=== PATIENT | female | born 1970 | race Caucasian/White ===

== ENCOUNTER → 2016-10-24 | Outpatient (REF) | payer OTHER | LOC: M LAB REF 10:06 | PROVIDERS: ATTEND Physician Assistant | DX: N39.0 Urinary tract infection, site not specified (principal) ==

== ENCOUNTER → 2018-01-20 | Outpatient (REF) | payer OTHER ==
[2018-01-20 18:26] LABS: BACTERIA, URINE AUTO NEGATIVE (NEGATIVE); MUCUS, URINE SMALL (NEGATIVE); RBC, URINE AUTO 0 /HPF (0-3); SQUAMOUS EPITHELIAL CELL UR AU 0 /HPF (0-6); WBC, URINE AUTO 0 /HPF (0-3)
== END ==
LOC: M LAB REF 16:51
DX: N76.0 Acute vaginitis (principal)

== ENCOUNTER → 2018-10-14 | Outpatient (REF) | payer OTHER | LOC: M LAB REF 15:36 | PROVIDERS: ATTEND Physician Assistant | DX: N39.0 Urinary tract infection, site not specified (principal) ==

== ENCOUNTER → 2019-02-26 | Outpatient (REF) | payer BC, OTHER | LOC: M LAB REF 13:28 | PROVIDERS: ATTEND Physician Assistant | DX: N39.0 Urinary tract infection, site not specified (principal) ==

== ENCOUNTER → 2020-07-18 | Outpatient (CLI) | payer BC ==
--- NOTE | 2020-07-18 12:41 | REPMRS ---
Patient History The patient states she has not had a clinical breast exam in over a year. Family history of colorectal cancer at age 75 in maternal grandmother, colorectal cancer at age 50 or over in paternal grandmother. Took hormonal contraceptives for 15 years. 3D TOMOSYNTHESIS WAS PERFORMED. The [facility] lifetime risk for breast cancer is 10.6%. Volpara breast density b. Digital Woman Screen Mammo: July 18, 2020 - Exam #: [id number] Bilateral CC and MLO view(s) were taken. Technologist: Lucy Weems, RT FINDINGS: The breast tissue is heterogeneously dense. This may lower the sensitivity of mammography. There is a fairly symmetric fibroglandular pattern in both breasts. There has been no interval development of masses, areas of architectural distortion or clusters of microcalcifications typical of malignancy. The previously noted multiple bilateral cysts have all decreased in size. Assessment: BI-RADS/ACR category 2 mammogram. Benign Findings. Recommendation Routine screening mammogram of both breasts in 1 year (for women over age 40). This mammogram was interpreted with the aid of an FDA-approved computer-aided dectection system. Electronically Signed By: Vick Zhang MD 07/18/20 [id number]
--- NOTE | 2020-07-22 08:41 | REP ---
INDICATION: CYSTS. COMPARISON: 06/03/2017. TECHNIQUE: Real-time sonographic evaluation of entire bilateral breasts performed. FINDINGS: A hypoechoic nodule at 12 o'clock right breast measures 1.2 x 1.0 x 0.9 cm. There are internal echoes and this is not a simple cyst. It could represent a complex cyst or solid nodule. This is located 2 cm from the nipple. There is a simple cyst in the right breast at 1 o'clock measuring 1.0 x 1.5 x 0.8 cm. A cyst with multiple thin septations is noted in the right breast at 6 o'clock, 4 x 12 x 6 mm. A morphologically normal appearing lymph node in the right axilla measures 1.8 x 1.4 x 0.8 cm. In the left breast a simple cyst with a thin septation at 10 o'clock measures 1.3 x 1.9 x 0.7 cm. A simple cyst at 9 o'clock measures 1.1 cm in diameter. Morphologically normal appearing lymph nodes in the left axilla are noted. IMPRESSION: BIRADS/ACR category 4A, suspicion for malignancy is low. A hypoechoic nodule at 12 o'clock right breast measures 1.2 cm maximum diameter. This could represent a complex cyst or solid nodule. Recommend ultrasound-guided sampling. RECOMMENDATION: As above. <Electronically signed by Vick Zhang > 07/22/20 [id number]
== END ==
LOC: M WHC 11:32
PROVIDERS: ATTEND Nurse Practitioner Adult Health
DX: Z12.31 Encounter for screening mammogram for malignant neoplasm of breast (principal); Z92.0 Personal history of contraception

== ENCOUNTER → 2020-07-30 | Outpatient (CLI) | payer BC, OTHER ==
[~2020-07-30] MED LIST: ATOR1TAB19 PO; DULO1CAP6 PO; LEVOTAB10 PO; MONT10TA10 PO; SING5CHW23 PO; VITMTA PO
[2020-07-30 15:47] VITALS: BP 130/74
--- NOTE | 2020-07-30 16:10 | REP ---
INDICATION: RIGHT BREAST NODULE/U/S GUIDED BX/CK CLIP PLACEMENT. COMPARISON: 07/18/2020. TECHNIQUE: ML and CC views right breast performed following ultrasound-guided biopsy at the 12 o'clock position. FINDINGS: A biopsy clip is seen at the 12 o'clock position, at the site of the ultrasound-guided biopsy. IMPRESSION: Biopsy clip placement at the site of the ultrasound-guided biopsy 12 o'clock right breast. RECOMMENDATION: Clinical follow-up. <Electronically signed by Vick Zhang > 07/30/20 [id number]
--- NOTE | 2020-07-30 19:58 | REP ---
INDICATION: R BREAST NODULE/US GUIDED BX. COMPARISON: None. TECHNIQUE: The procedure was performed under the general supervision of Dr. Zhang. The risks and benefits of the procedure were explained to the patient and informed consent was obtained. The patient has a history of a hypoechoic nodule at the 12 o'clock position of the right breast seen on a previous ultrasound dated 07/18/2020. The right breast nodule was localized using ultrasound guidance. The skin was prepped and draped in a sterile fashion. 1% Xylocaine was used as a local anesthetic. Using ultrasound guidance a 14 gauge coaxial needle biopsy system was inserted and6 core biopsy samples were obtained. A marker clip (HydroMARK shape 4) was placed at the biopsy site The patient tolerated the procedure well and there were no immediate complications. After the appropriate amount of monitored convalescence, the patient was discharged from the department. FINDINGS: None IMPRESSION: Ultrasound-guided right breast biopsy with marker clip placement. (HydroMARK shape 4) <Electronically signed by Iron Brown > 07/30/20 1642 <Electronically signed by Vick Zhang > 07/30/20 [id number]
== END ==
LOC: M WHCPRO 07:21
PROVIDERS: ATTEND Nurse Practitioner Adult Health
DX: N63.10 Unspecified lump in the right breast, unspecified quadrant (principal)

== ENCOUNTER → 2021-02-10 | Outpatient (CLI) | payer BC, OTHER ==
--- NOTE | 2021-02-10 15:09 | REP ---
INDICATION: RT SHOULDER PAIN. COMPARISON: 03/10/2017 TECHNIQUE: Single AP view and scapular Y-view was obtained FINDINGS: The calcifications seen previously in the subacromial space are no longer present. The glenohumeral relationship in the acromioclavicular joint are within normal limits. Limited examination showing no evidence of an acute fracture, dislocation, or subluxation. IMPRESSION: As above <Electronically signed by Charlie Urrutia > 02/10/21 [id number]
== END ==
LOC: M SOG 13:42
PROVIDERS: ATTEND Orthopaedic Surgery
DX: M25.511 Pain in right shoulder (principal)

== ENCOUNTER → 2021-08-15 | Outpatient (CLI) | payer BC, OTHER ==
[~2021-08-15] MED LIST changes: -MONT10TA10 PO; +MONT10TA97 PO
== END ==
LOC: M WHC 12:22
PROVIDERS: ATTEND Nurse Practitioner Adult Health
DX: Z12.31 Encounter for screening mammogram for malignant neoplasm of breast (principal)

== ENCOUNTER → 2021-09-16 | Outpatient (CLI) | payer BC, OTHER ==
[2021-09-17 15:09] LABS: ANTINUCLEAR ANTIBODIES DIRECT Negative (Negative)
== END ==
LOC: M WUC 09:58
PROVIDERS: ATTEND Nurse Practitioner Adult Health
DX: R53.83 Other fatigue (principal)

== ENCOUNTER → 2021-12-23 | Outpatient (REF) | payer BC, OTHER ==
[2021-12-23 13:09] LABS: C REACTIVE PROTEIN QUANTITATIV 0.44 MG/DL (0.00-0.30); RHEUMATOID FACTOR QUANT < 10.0 IU/ML (<15.0)
[2021-12-23 14:26] LABS: HEPATITIS C VIRUS ABY INDEX < 0.0 INDEX (<0.8)
[2021-12-23 14:27] LABS: HEPATITIS B CORE ANTIBODY IGM NEGATIVE (NEGATIVE)
[2021-12-23 14:28] LABS: HEPATITIS B SURFACE ANTIGEN NEGATIVE (NEGATIVE)
== END ==
LOC: M LAB REF 12:07
PROVIDERS: ATTEND Nurse Practitioner Adult Health
DX: R53.83 Other fatigue (principal); M25.50 Pain in unspecified joint

== ENCOUNTER → 2022-01-08 | Outpatient (CLI) | payer OTHER, BC | LOC: M SOG 08:02 | PROVIDERS: ATTEND Orthopaedic Surgery Adult Reconstructive Orthopaedic Surgery | DX: M25.762 Osteophyte, left knee (principal); M25.562 Pain in left knee ==

== ENCOUNTER 2022-09-14 19:34 | Emergency (ER) | payer BC, OTHER ==
[2022-09-14 20:53] LABS: BASO # 0.1 10^3/uL (0.0-0.2); BASO % 0.6 % (0.0-1.0); EOS # 0.4 10^3/uL (0.0-0.5); EOS % 4.2 % (0.0-3.0); HEMATOCRIT 38.2 % (36.0-47.0); LYMPH # 2.6 10^3/uL (1.5-5.0); LYMPH % 29.9 % (24.0-44.0); MEAN CORPUSCULAR HEMOGLOBIN 30.6 pg (27.0-33.0); MEAN CORPUSCULAR VOLUME 89.9 fl (80.0-96.0); MONO # 0.6 10^3/uL (0.0-0.8); MONO % 6.9 % (2.0-8.0); NEUTROPHILS % 57.7 % (36.0-66.0); PLATELET COUNT, AUTOMATED 392 10^3/uL (150-450); RED BLOOD COUNT 4.25 10^6/uL (4.00-5.40); WHITE BLOOD COUNT 8.6 10^3/uL (4.0-10.0)
[2022-09-14 21:01] LABS: CK-MB VALUE MASS < 1.0 NG/ML (<3.6)
[2022-09-14 21:03] LABS: BLOOD UREA NITROGEN 19 MG/DL (9-23); CALCIUM LEVEL 9.2 MG/DL (8.5-10.1); CARBON DIOXIDE LEVEL 27 MMOL/L (20-31); CHLORIDE LEVEL 111 MMOL/L (98-107); CREATININE FOR GFR 0.86 MG/DL (0.55-1.30); GLOMERULAR FILTRATION RATE > 60.0 (>51); GLUCOSE, FASTING 107 MG/DL (60-100); POTASSIUM SERUM 4.1 MMOL/L (3.5-5.1); SODIUM LEVEL 144 MMOL/L (136-145)
[2022-09-14 21:06] LABS: FREE T4 0.96 NG/DL (0.89-1.76); THYROID STIMULATING HORMONE 1.952 uIU/ML (0.55-4.78)
[2022-09-14 21:07] LABS: CPK CREATINE PHOSPHOKINASE 67 U/L (34-145); MB/CK RELATIVE INDEX 1.49 (< OR =4)
[2022-09-14 22:16] LABS: CK-MB VALUE MASS < 1.0 NG/ML (<3.6)
[2022-09-14 22:18] LABS: CPK CREATINE PHOSPHOKINASE 62 U/L (34-145); MB/CK RELATIVE INDEX 1.61 (< OR =4)
[2022-09-15] MEDS ORDERED: HOLTER MONITOR XX (00:33)
[2022-09-15 01:00] VITALS: BP 142/75
== END 2022-09-15 01:11 | disposition home or self-care (01) ==
LOC: M ED 19:34
DX: R00.2 Palpitations (principal); J45.909 Unspecified asthma, uncomplicated; Z79.899 Other long term (current) drug therapy

== ENCOUNTER → 2022-09-16 | Outpatient (CLI) | payer BC ==
[~2022-09-16] MED LIST changes: +HOLTER MONITOR XX
== END ==
LOC: M EKG 10:11
PROVIDERS: ATTEND Emergency Medicine
DX: R00.2 Palpitations (principal)

== ENCOUNTER → 2022-11-11 | Outpatient (CLI) | payer BC ==
[2022-11-11 17:26] LABS: THYROID STIMULATING HORMONE 0.988 uIU/ML (0.55-4.78)
[2022-11-11 17:27] LABS: FOLLICLE STIMULATING HORMONE 65.7 mIU/ML; FREE T4 1.17 NG/DL (0.89-1.76); LUTEINIZING HORMONE 17.3 mIU/ML
[2022-11-11 17:28] LABS: PROGESTERONE 0.69 NG/ML
[2022-11-11 17:34] LABS: ESTRADIOL 19.6 PG/ML
== END ==
LOC: M WUC 13:53
PROVIDERS: ATTEND Obstetrics & Gynecology
DX: N95.1 Menopausal and female climacteric states (principal)

== ENCOUNTER → 2022-11-17 | Outpatient (CLI) | payer BC, OTHER | LOC: M WHC 14:18 | PROVIDERS: ATTEND Obstetrics & Gynecology | DX: N95.1 Menopausal and female climacteric states (principal) ==

== ENCOUNTER → 2022-12-30 | Day surgery (SDC) | payer BC, OTHER ==
[~2022-12-30] VITALS: Ht 170.2 cm; Wt 88.9 kg
[~2022-12-30] MED LIST changes: +LIDOCAINE 2% 100MG/5ML SDV (FOR ANES.) As Ordered ONE; +METO1TAB87 PO; +NS 1,000 ML IV ONE; +propofoL 500 MG/50 ML VIAL As Ordered ONE
[2022-12-30 10:53] VITALS: BP 171/86; TEMP 97.6; O2SAT 99
== END | disposition home or self-care (01) ==
LOC: M OPP 08:51
PROVIDERS: ATTEND Internal Medicine Gastroenterology
DX: Z12.11 Encounter for screening for malignant neoplasm of colon (principal); K63.5 Polyp of colon; K64.0 First degree hemorrhoids; E78.5 Hyperlipidemia, unspecified; F41.9 Anxiety disorder, unspecified; J45.909 Unspecified asthma, uncomplicated; Z79.899 Other long term (current) drug therapy

== ENCOUNTER → 2023-04-09 | Outpatient (REF) | payer BC, OTHER ==
[~2023-04-09] MED LIST changes: -LIDOCAINE 2% 100MG/5ML SDV (FOR ANES.) As Ordered ONE; -NS 1,000 ML IV ONE; -propofoL 500 MG/50 ML VIAL As Ordered ONE
[2023-04-09 18:48] LABS: BLOOD UREA NITROGEN 15 MG/DL (9-23); CALCIUM LEVEL 9.6 MG/DL (8.5-10.1); CARBON DIOXIDE LEVEL 28 MMOL/L (20-31); CHLORIDE LEVEL 106 MMOL/L (98-107); CREATININE FOR GFR 0.72 MG/DL (0.55-1.30); GLOMERULAR FILTRATION RATE > 60.0 (>51); GLUCOSE, FASTING 84 MG/DL (60-100); POTASSIUM SERUM 3.9 MMOL/L (3.5-5.1); SODIUM LEVEL 143 MMOL/L (136-145)
== END ==
LOC: M LABWUC 16:31
PROVIDERS: ATTEND Internal Medicine Cardiovascular Disease
DX: R00.2 Palpitations (principal)

== ENCOUNTER → 2024-03-27 | Outpatient (REF) | payer OTHER, BC ==
[~2024-03-27] MED LIST changes: +MONT5TAB7 PO; -SING5CHW23 PO
[2024-03-29 16:43] LABS: HPV APTIMA Not Detected (Not Detected)
== END ==
LOC: M SFHCWAGY 15:10
PROVIDERS: ATTEND Nurse Practitioner Family
DX: Z12.4 Encounter for screening for malignant neoplasm of cervix (principal); Z11.51 Encounter for screening for human papillomavirus (HPV); Z01.419 Encounter for gynecological examination (general) (routine) without abnormal findings; Z77.9 Other contact with and (suspected) exposures hazardous to health

== ENCOUNTER → 2024-04-27 | Outpatient (CLI) | payer BC | LOC: M WHC 13:14 | PROVIDERS: ATTEND Nurse Practitioner Family | DX: Z12.31 Encounter for screening mammogram for malignant neoplasm of breast (principal); M81.0 Age-related osteoporosis without current pathological fracture ==

== ENCOUNTER → 2024-05-04 | Outpatient (CLI) | payer BC | LOC: M WHC 10:04 | PROVIDERS: ATTEND Nurse Practitioner Family | DX: N60.01 Solitary cyst of right breast (principal) ==